=== PATIENT | female | born 1980 | race Two or more races ===

== ENCOUNTER 2025-06-17 17:31 | Emergency (ER) | payer OTHER ==
[~2025-06-17] VITALS: Ht 162.6 cm; Wt 79.4 kg
[2025-06-17] MEDS ORDERED: FAMOtidine 10 MG/ML (4ML VIAL) IV ONE (18:00)
[2025-06-17] MEDS ORDERED: ONDANSETRON HCL 2 MG/ML VIAL IV ONE (18:00)
[2025-06-17] MEDS ORDERED: 0.9 % SODIUM CHLORIDE 500 ML IV ONE (18:15)
[2025-06-17 19:19] LABS: BASO % 0.3 % (0.1-1.2); EOS # 0.08 (0.04-0.54); EOS % 1.0 % (0.7-7.0); LYMPH # 0.54 (1.18-3.74); LYMPH % 6.9 % (19.3-53.1); MEAN PLATELET VOLUME 10.60 fl (9.4-12.4); MONO # 0.42 (0.24-0.82); MONO % 5.4 % (4.7-12.5); NEUT # 6.75 (1.56-6.13); NEUT % 86.3 % (34.0-71.1); RED CELL DISTRIBUTION WIDTH 16.2 % (11.6-14.4)
[2025-06-17 19:48] LABS: ALT/SGPT 26.0 U/L (12-78); AST/SGOT 18.0 U/L (15-37); BILIRUBIN TOTAL 0.35 mg/dL (0.3-1.2); BUN CREA RATIO 20.0 (7.0-25.0); CREATININE SERUM 0.65 mg/dL (0.55-1.02); GFR 98.57; GLOBULINA 3.6 G/DL (2.4-3.5); GLUCOSE FASTING 104.0 mg/dL (65-100); OSMOLALITY SERUM 278.0 MOSM/KG (275-295)
[2025-06-17 20:45] LABS: URINE APPEARANCE Clear; URINE BILIRRUBIN Negative (NEGATIVE); URINE BLOOD Negative; URINE COLOR Yellow; URINE GLUCOSE Negative (NEGATIVE); URINE KETONE Negative (NEGATIVE); URINE LEUKOCYTE Negative; URINE NITRATE Negative; URINE PROTEIN Trace (NEGATIVE); URINE UROBILINOGEN 1.0 E.U./dl
[2025-06-17 20:51] LABS: URINE BACTERIA 236.3 uL (0.0-1933); URINE EPITHELIAL CELLS 13.3 uL (0.0-38.8); URINE RBC 75.9 uL (0.0-20.8); URINE WBC 2.0 uL (0.0-23.2)
[2025-06-17 21:06] LABS: URINE CAST 0.14 uL (0.0-1.40)
[2025-06-17] MEDS ORDERED: TRAMADOL HCL 50 MG TABLET PO ONE (22:45)
[2025-06-17] MEDS ORDERED: HYOSCYAMINE SULFATE 0.125 MG TAB.SUBL SL ONE (22:45)
[2025-06-18] MEDS ORDERED: PEPCID AC20 MG PO (03:48)
[2025-06-18] MEDS ORDERED: LEVSIN/SL0.125 MG SL (03:48)
== END 2025-06-18 04:22 | disposition home or self-care (01) ==
LOC: ER 17:32
PROVIDERS: Preventive Medicine Public Health & General Preventive Medicine
DX: K52.89 Other specified noninfective gastroenteritis and colitis (principal); Z88.0 Allergy status to penicillin; I10 Essential (primary) hypertension; N20.1 Calculus of ureter